=== PATIENT | female | born 1980 | race Native Hawaiian/Other Pacific Islander ===

== ENCOUNTER 2022-10-18 13:41 | Outpatient (CLI) | payer OTHER | END 2022-10-18 22:33 | disposition home or self-care (01) | LOC: LABW 13:41 | DX: Z79.899 Other long term (current) drug therapy (principal) | CPT/HCPCS: 80307 ==

== ENCOUNTER 2022-11-28 10:49 | Outpatient (CLI) | payer OTHER ==
[2022-11-28 11:06] LABS: PLATELET COUNT 382 K/uL (152-353)
[2022-11-28 11:13] LABS: POTASSIUM 4.5 mmol/L (3.6-5.2)
== END 2022-11-28 21:46 | disposition home or self-care (01) ==
LOC: LABW 10:49
PROVIDERS: ATTEND Internal Medicine Endocrinology, Diabetes & Metabolism
DX: E11.9 Type 2 diabetes mellitus without complications (principal); E78.49 Other hyperlipidemia
CPT/HCPCS: 36415; 80053; 80061; 82043; 82570; 83036; 84439; 84443; 85027